=== PATIENT | female | born 1990 | race Caucasian/White ===

== ENCOUNTER 2018-03-28 11:30 | Emergency (ER) | payer OTHER, SELFPAY ==
[2018-03-28 11:31] VITALS: BP 108/65; PULSE 90; RESP 18; TEMP 36.6; O2SAT 97; BMI 48.8
--- NOTE | 2018-03-28 11:46 | RAD_ITS ---
STUDY: X-RAY CHEST REASON FOR EXAM: Female, 28 years old. 4 day history of hemoptysis. Chest pain. TECHNIQUE: PA and lateral views of the chest. COMPARISON: None. FINDINGS: The lungs are clear and expanded. There is no demonstrated pleural abnormality. Normal size heart. Normal mediastinum and chioma. Normal visualized pulmonary arteries. Normal visualized aortic arch and descending thoracic aorta. Normal visualized thoracic spine. Normal visualized ribs, clavicles, and shoulders. There is no demonstrated abnormality of the visualized soft tissue structures of the upper abdomen. RAD/Chest PA and Lateral IMPRESSION: Normal x-ray examination of the chest. Electronically Signed: Rocky Mcclellan MD at 12:22 EDT Tel [phone], Service support ,
--- NOTE | 2018-03-28 11:48 | ED.VISSUMM ---
- ER Visit Summary Date of Service: 03/28/18 Chief Complaint: Cough History of Present Illness: The patient is a 28 F without any past medical or surgical history.. Patient states she had 2-day history of a cough which was initially sputum and blood-tinged sputum and now small amounts of blood. She denies fever. She denies shortness of breath. She has never had a DVT or PE. She has no risk factors. No recent travel or surgery. No recent hospitalization. No leg pain or swelling. No family history of clotting disorder. She is not on any type of control pill. She denies any pleuritic chest pain. Physical Examination: Vital signs are stable and afebrile her pulse ox is 97% room air no signs of hypoxia. Heart rate 90. CO2 she is in no distress. H EENT exam unremarkable. Neck nontender no JVD. No lymphadenopathy. Lungs clear to auscultation bilaterally. Heart regular rate and rhythm no murmur. Rate about 90. He was treated abdomen soft nontender normal bowel sounds no peritoneal metastases. She is moving all 4 extremity's. Neurovascular intact. Calves are nontender without edema nor cords. Neurologically she is awake and alert with no focal motor deficits. Back exam nontender. Skin unremarkable. No petechiae or purpura. No rashes. Test Results: Two-view chest x-ray shows Emergency Department Course and Treatment: Patient's history and exam are consistent with a viral bronchitis. Treatment Plan: Return if coughing up more blood, Develops shortness of breath or pleuritic chest pain. Disposition: Discharge Impression: Viral bronchitis This note was generated with [employer] dictation software. It may contain incorrect words, spelling, and punctuation that were not noted in review of the chart prior to signing ED Disposition - Plan for ED Patient: Chief Complaint: Cough Referrals: NOT,DEFINED [Primary Care Provider] -
--- NOTE | 2018-03-28 11:53 | ED.DEP ---
ED Disposition - Plan for ED Patient: Disposition: Home or Assisted Living Chief Complaint: Cough Instructions: ED Upper Resp Infec No Abx Tx Referrals: Jordan Dalton MD [STAFF PHYSICIAN] - As Needed Additional Instructions: Follow-up with a local primary care physician as needed. Return to the ER if you develop severe shortness of breath, chest pain or your coughing up more blood.
[2018-03-28 12:42] VITALS: BP 116/70; PULSE 78; RESP 17; O2SAT 97
--- NOTE | 2018-03-29 09:54 | CM.ED ---
ED CALLBACK: Follow-up call placed to patient with no answer. Voicemail left with return contact information.
== END 2018-03-28 12:43 | disposition home or self-care (01) ==
LOC: ED 12:14
PROVIDERS: Emergency Provider Emergency Medicine
DX: J20.8 Acute bronchitis due to other specified organisms (principal)
CPT/HCPCS: 71046; 99282

== ENCOUNTER 2018-11-08 10:47 | Day surgery (SDC) | payer OTHER, SELFPAY ==
--- NOTE | 2018-11-06 17:16 | PCM.HP.BLA ---
History and Physical Date of Admission: 11/08/18 Pre-Op History and Physical ? HPI: The patient is a 28 year old female presenting for pre-operative visit. She is scheduled for?Suction D&C, for?missed on?11/08/18. ??Procedure discussed along with risks, benefits and complications. ?Other alternatives discussed for management. Consent form signed??Yes.? PAST?MEDICAL?HISTORY PAST MEDICAL HISTORY Diagnosis Date ? fracture ? ? right wrist ? ? PAST?SURGICAL?HISTORY PAST SURGICAL HISTORY Procedure Laterality Date ? PAST SURGICAL HISTORY OF ? ? ? right arm fracturereduced under anesthesia ? ? CURRENT?MEDICATIONS Current Outpatient Medications Medication Sig Dispense Refill ? promethazine (PHENERGAN) 12.5 mg tablet Take 1 tablet by mouth every 6 hours as needed. 30 tablet 1 ? [id number] ( VITAMIN) tab Take 1 tablet by mouth. ? ? ? No current facility-administered medications for this visit.? ? ALLERGIES:?Salt Irrigation Solution No.3 ? PERSONAL HISTORY:? 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 FAMILY HISTORY:? FAMILY?HISTORY FAMILY HISTORY Problem Relation Age of Onset ? Cancer Mother ?brain and lung cancer ? No Known Problems Father ? ? No Known Problems Brother ? ? Breast Cancer Maternal Grandmother ? ? No Known Problems Paternal Grandmother ? ? REVIEW OF SYMPTOMS: GENERAL: denies fevers or chills ENDOCRINOLOGY: has not been on steroids Cardiology : denies palpitations or chest pain Respiratory: denies SOB or cough Hematology: denies history of prolonged bleeding or easy bruising or VTE Allergy: Denies history of personal or family history of allergy to anesthesia ? ? PHYSICAL EXAMINATION: ? VITALS:?Last menstrual period 09/07/2018. ? GENERAL:??The patient is well nourished, well hydrated in no acute distress. ?, The patient is oriented to time, place, and person. NECK:?Supple. No lynphadenopathy, normal thyroid, no thyromegaly. LUNGS:?Clear to auscultation bilaterally. no wheezes, rhonchi or rales HEART:?Regular rate and rhythm, Normal heart sounds and No murmurs or gallops Formal US done on 11/01/18- SAB w/oc cardiac activity.?? ? IMPRESSION:?7 week SAB ? PLAN:???The risks/benefits/alternatives and personal involved for the planned?suction D&C?were reviewed with the patient. Her questions were answered to her satisfaction and she desires to proceed. ?Consent was signed. ?I reviewed with her postop instructions and expectations. Will get CBC and Type and screen preop ? I have reviewed and updated past medical and surgical history, medications and allergies? This history and physical was completed in my office on 11/06/2018. Jo-Ann Zepeda M.D.
[2018-11-08 12:02] VITALS: BP 115/74; PULSE 76; RESP 18; TEMP 37.1; O2SAT 100; BMI 46.0
--- NOTE | 2018-11-08 12:30 | POC_PTH ---
PATIENT: CARL PARRA LOC: [facility] – [place] U#:[id number] AGE/SX: 28/F ROOM: RE11/08/[address]: Dr. Jo-Ann Zepeda MD : 1990 BED: DIS: 11/08/2018 SPEC #: [id number] RECD: 11/09/18 08:57 STATUS: VANI BHATTI #: [id number] TAMIKA: 11/08/18 12:[address]: Jo-Ann Zepeda DEPT: SURGICAL PATHOLOGY RECD BY: Adan Taylor ENTERED: 11/09/18 08:58 SP TYPE: PROD CONC OTHR DR: Dr. Rolan Art MD Tissues: Product of conception, NOS Procedures: Surgery Specimen Level IV HEADER OPERATION: Suction dilation and curettage PRE-OP DIAGNOSIS: Missed TISSUE SUBMITTED: Products of conception MICROSCOPIC DIAGNOSIS Products of conception: Decidua, gestational endometrium and immature chorionic villi (products of conception). SJ:yemi 11/12/18 MICROSCOPIC DESCRIPTION Slides are reviewed. GROSS DESCRIPTION Received in fixative is one container labeled with the patient's name and designated products of conception. The specimen consists of multiple irregular fragments of light negron soft tissue that in aggregate measure 8 x 6 x 1.5 cm. parts are not grossly recognized. Associate Faculty portions are submitted in one cassette. / AM:yemi 11/09/18 TC:5 CPT: 41687
[2018-11-08 12:34] LABS: Hematocrit 34.2 % (37-47); Mean Corp Hgb Conc 32.2 g/gl (32-36); Mean Corpuscular Hgb 24.8 pg (27.0-32.0); Mean Corpuscular Volume 77.2 fL (81-99); Mean Platelet Vol. 10.4 fl (6.2-12.0); Platelet Count 334 K/mm3 (150-450); RBC Distribution Width SD 44.8 fl (35.1-43.9); Red Blood Count 4.43 M/mm3 (4.2-5.4)
[2018-11-08 12:39] LABS: Scan Indicated on CBC? Y/N NO
[2018-11-08] MEDS: Acetaminophen 500 MG Tablet 1000 MG PO (13:09)
[2018-11-08] MEDS: Doxycycline 100 MG CAPSULE PO (13:09)
[2018-11-08] MEDS: Ketorolac 30 MG/ML Syringe IV (13:10)
[2018-11-08 15:20] VITALS: BP 110/64; BP 115/74; PULSE 90; RESP 16; TEMP 37.2; O2SAT 92
[2018-11-08 15:25] VITALS: BP 115/74; BP 99/62; PULSE 88; RESP 16; O2SAT 95
--- NOTE | 2018-11-08 15:25 | DCINST_ITS ---
Discharge Diet: No Restrictions Discharge Activity: Return to Normal Activity, May Shower, May Take a Tub Bath - in 2 weeks. May resume sexual activity in: 2 weeks Call your doctor if your incision/area has: Sudden Increased Bleeding, Foul Smelling Discharge Call your doctor if you observe: Fever of 101 or Higher, Inability to have a bowel movement, Using more than one pad per hour - for 2 hrs in a row Allergies/Adverse Reactions: Allergies IODIZED SALT Allergy (Uncoded 11/07/18 10:44) Anaphylaxis Medications to take at Discharge Ibuprofen [Motrin] 600 mg PO Q6H PRN #20 tablet 11/08/18 The following prescriptions were given: Ibuprofen [Motrin] 600 mg PO Q6H PRN #20 tablet PRN Reason: Pain Primary Care Physician: Rolan Art [Primary Care Provider] - Test Results: Test results from this visit will be discussed in further detail at your follow- up appointment, if applicable. Please Follow Up With: Shakira Duenas - [phone] When: In our office in 2-4 weeks or as needed
--- NOTE | 2018-11-08 15:25 | PCM.OPRPT ---
Report of Operation Date of Procedure: 11/08/18 Pre-Operative Diagnosis: missed 7 weeks gestation Post-Operative Diagnosis: Same Surgery/Procedure Performed:: Suction dilation and curettage Description of Surgical Findings:: Normal-appearing cervix and vagina traffic representative: None Type of Anesthesia:: MAC/Supplemental/Local Special Medications: None Specimen's removed: Products of conception Drains: none Estimated Blood Loss (mL): 10 Fluids Replaced: 800 Description of Procedure: The patient was taken to the operating room where she was prepped and draped in a dorsolithotomy position. A bimanual examination was done and confirmed the uterus to be 7 weeks size and mid-position. A weighted speculum was placed in the vagina and the anterior lip of the cervix was grasped with a single-tooth tenaculum. The cervix was dilated serially. A 7 mm suction curette was placed to the uterine fundus and the suction was created. Several passes were made to remove clots and products of conception. When minimal tissue was returning a gentle sharp curettage was then done of the uterine cavity. The uterine cry was appreciated and another gentle pass was made with the suction curette. At this point there is no active bleeding from the uterus and minimal blood and no further products of conception were removed. The instruments removed from the cervix and the cervix was observed and no active bleeding was identified. The tenaculum was removed off the cervix and hemostasis of the tenaculum site was assured. Made of the instruments removed from the vagina and the vaginal sweep was completed by me. Sponge and needle counts were correct. The patient was taken to the recovery room in stable condition. Findings: 7 week size uterus, normal cervix and vagina. Specimen: Products of conception Grafts/Implants Used: none - Complications none - Admit VTE Documentation VTE Present on Admission: No VTE Mechan Device Prophylaxis: SCD's VTE Pharm Prophylaxis ordered?: No Reason prophylaxis not ordered:: Procedure Not Indicated
[2018-11-08 15:30] VITALS: BP 104/58; BP 115/74; PULSE 78; RESP 16; O2SAT 98
[2018-11-08 15:35] VITALS: BP 111/70; BP 115/74; PULSE 79; RESP 16; TEMP 37.1; O2SAT 97
[2018-11-08 16:44] VITALS: BP 115/74
== END 2018-11-08 16:53 | disposition home or self-care (01) ==
LOC: SDC 10:49 → AC 10:52
PROVIDERS: Family Provider Family Medicine; PCP Family Medicine; Referring Provider Obstetrics & Gynecology; Visit Provider Obstetrics & Gynecology
PROC: (CPT 59820; principal; 2018-11-08 12:15)
DX: O02.1 Missed abortion (principal); Z3A.01 Less than 8 weeks gestation of pregnancy
CPT/HCPCS: 59820; 85027; 86850; 86900; 88305; J7120; J2405

== ENCOUNTER 2019-03-13 07:44 | Emergency (ER) | payer OTHER, SELFPAY ==
[2019-03-13 07:45] VITALS: BP 114/78; PULSE 102; RESP 14; TEMP 36.6; O2SAT 99; BMI 42.4
[2019-03-13 08:37] LABS: Mucous, Urine 0 SEEN /hpf (<or=2+); Red Blood Cells-Urine 0 SEEN /hpf (0-5)
[2019-03-13 08:38] LABS: Color, Urine Yellow (Yellow); Glucose, Dipstick Normal (Normal); Ketone-Dipstick 150 mg/dl (Negative); Leukocyte Esterase-Dipstick 500 /ul (Negative); Nitrite-Dipstick Negative (Negative); Occult Blood-Urine 25 /ul (Negative); Protein-Dipstick 30 mg/dl (Negative); Specific Gravity, Urine 1.025 (1.002-1.030); Urine Bilirubin Dipstick Negative (Negative); Urine Clarity Cloudy (Clear); Urine Urobilinogen 4 mg/dl (Normal)
[2019-03-13 08:47] LABS: Bacteria 2+ /hpf (None Seen); Squamous Epithelial Cells - UA 25-50 SEEN /hpf (5-10); White Blood Cells 5-10 SEEN /hpf (0-5)
[2019-03-13 08:48] LABS: Absolute Lymphocyte Count 1.77 X10^3/uL (0.83-4.51); Absolute Neutrophil Count 5.8 X10^3/uL (2.0-7.7); Basophil# 0.04 X10^3/uL; Basophil% 0.5 % (0-1); Eosinophil# 0.41 X10^3/uL; Eosinophils% 4.7 % (0-5); Hematocrit 35.4 % (37-47); Hemoglobin 11.4 g/dL (12.0-15.0); Lymphocyte # 1.77 X10^3/ul (4.0); Lymphocyte % 20.5 % (19-41); Mean Corp Hgb Conc 32.2 g/dL (32-36); Mean Corpuscular Hgb 26.3 pg (27.0-32.0); Mean Corpuscular Volume 81.6 fL (81-99); Mean Platelet Vol. 11.5 fl (6.2-12.0); Monocyte% 6.9 % (0-10); NRBC Flagged by Analyzer 0 % (0-5); Neutrophil # 5.81 X10^3/uL (2.7-7.7); Neutrophil % 67.3 % (47-70); Platelet Count 250 K/mm3 (150-450); RBC Distribution Width CV 14.8 % (11.6-14.6); RBC Distribution Width SD 44.8 fl (35.1-43.9); Red Blood Count 4.34 M/mm3 (4.2-5.4); White Blood Count 8.6 K/mm3 (4.4-11.0)
[2019-03-13 09:09] LABS: ALB/GLOB Ratio 0.6 RATIO (0.9-2.4); AST(SGOT) 34 U/L (15-37); Alanine Aminotransfer ALT/SGPT 27 U/L (13-56); Alkaline Phosphatase 50 U/L (45-117); Anion Gap 8 (5-15); BUN 6 mg/dL (7-18); BUN/Creat Ratio 9.6 RATIO (10-20); Calcium,Total 9.1 mg/dL (8.5-10.1); Chloride 107 mmol/L (98-107); Creatinine, Serum 0.62 mg/dL (0.55-1.02); EST Glomerular Filtration Rate 122 mL/min (>60); Est Glom Filt Rate - Afr Amer 147 mL/min (>60); Estimated Creatinine Clearance 102.85 ml/min; Globulin 4.7 g/dL (2.2-4.2); Glucose 78 mg/dL (74-106); Potassium 4.3 mmol/L (3.5-5.1); Protein, Total 7.7 g/dL (6.4-8.2); Sodium Level 136 mmol/L (136-145)
[2019-03-13] MEDS: Metoclopramide 10 MG/2 ML Vial IV (09:25)
[2019-03-13] MEDS: Lactated Ringers 1,000 ML 999 ML IV (09:25)
--- NOTE | 2019-03-13 09:54 | ED.DCSUM_ITS ---
- ER Visit Summary Date of Service: 03/13/19 Chief Complaint: Nausea and vomiting History of Present Illness: The patient is a 29 F who is 12 weeks . She presents with nausea and vomiting for the past week and a half. She has daily symptoms. Nonbloody, nonbilious. No abdominal pain. No cramping, discharge, or bleeding currently. She is taking Unisom, vitamin B6, and Phenergan without much relief. Physical Examination: Afebrile and vital signs unremarkable except heart rate 102. Patient appears nontoxic and in no acute distress. Moist mucous membranes. Heart regular. No respiratory distress. Abdomen soft and nontender. Skin unremarkable. Test Results: Hemoglobin 11.4. CMP unremarkable. Urinalysis shows elevated leukocyte esterase, 5-10 white cells, 2+ bacteria. Culture pending. Emergency Department Course and Treatment: Bedside ultrasound performed by nj shows heart rate of about 140 with grossly normal anatomy. Patient was treated with lactated Ringer's and Reglan. On reevaluation, she was feeling better. Labs were reassuring. Urinalysis shows signs of bacteria. Culture pending. Will treat with Macrobid. Patient will be discharged to follow-up with her ONLINE CONTENT COORDINATOR after completion of her IV fluids. Treatment Plan: As above Disposition: Discharge Impression: 1. Nausea vomiting 2. Bacteriuria This note was generated with [employer] dictation software. It may contain incorrect words, spelling, and punctuation that were not noted in review of the chart prior to signing ED Disposition - Plan for ED Patient: Referrals: Rolan Art MD [Primary Care Provider] -
--- NOTE | 2019-03-13 09:57 | ED.DEP ---
ED Disposition - Plan for ED Patient: Instructions: Understanding Urinary Tract Infections (UTIs) Prescriptions: Nitrofurantoin Macrocrystals [Macrobid] 100 mg PO Q12 #10 cap Prescription Printed Additional Instructions: follow up with your obgyn
[2019-03-13] MEDS: Nitrofurantoin Macrocrystals 100 MG Capsule PO (11:05)
[2019-03-13 11:11] VITALS: BP 116/76; PULSE 86; RESP 16; O2SAT 100
--- NOTE | 2019-03-13 11:11 | ED.RN ---
IV DC'ED, CATHETER INTACT, SMALL GAUZE DRESSING PLACED. DISCHARGE INSTRUCTIONS GIVEN TO AND REVIEWED WITH PATIENT, PATIENT DENIES QUESTIONS OR CONCERNS AND VOICES UNDERSTANDING OF DISCHARGE INSTRUCTIONS. PT AMBULATES OUT OF ROOM WITHOUT DIFFICULTY.
== END 2019-03-13 11:12 | disposition home or self-care (01) ==
LOC: ED 08:22
PROVIDERS: Emergency Provider Emergency Medicine; Family Provider Family Medicine; PCP Family Medicine
DX: O26.891 Other specified pregnancy related conditions, first trimester (principal); R11.2 Nausea with vomiting, unspecified; R82.71 Bacteriuria; Z3A.12 12 weeks gestation of pregnancy
CPT/HCPCS: 80053; 81001; 85025; 87086; 87088; 96361; 96374; 99285; J7120; A4216

== ENCOUNTER 2019-09-13 06:38 | Outpatient (CLI) | payer OTHER, SELFPAY ==
[2019-09-13 06:54] VITALS: BMI 44.4
[2019-09-13 06:59] VITALS: PULSE 111; O2SAT 98
[2019-09-13 07:02] VITALS: BP 118/77; PULSE 120; TEMP 36.8; O2SAT 98
[2019-09-13 07:46] LABS: ROM Internal Control Test YES-OK TO RESULT pt. (Internal QC); ROM Patient Test Negative (Negative)
--- NOTE | 2019-09-13 20:33 | OB.TRI.NOTE ---
- Problem List (1) 38 weeks gestation of Status: Acute (2) Vaginal discharge Status: Acute History of Present Illness Date of Service: 09/13/19 Was patient seen by the physician?: No Reason For Visit: R/O LABOR Final MINH: 09/22/19 Gestational age: 38 Weeks and 5 Days History of Present Illness: Patient presented for possible LOF Allergies IODIZED SALT Allergy (Uncoded 09/13/19 07:10) Swelling Laboratory Studies: Laboratory Tests 09/13/19 Range/Units 06:56 Vag Amniotic Fld Detect Negative (Negative) Physical Exam Vitals: Vital Signs Temp Pulse BP Pulse Ox 98.3 F 120 H 118/77 98 09/13/19 07:02 09/13/19 07:02 09/13/19 07:02 09/13/19 07:02 NST - FHR Rate Baby A Baseline: 135 Variability:: Moderate Accelerations:: 15 x 15 Decelerations:: None NST Reactive:: Yes FHR Category:: Category I Uterine Activity:: Irregular ctx's Impression/Plan NST reactive ROM plus negative Discharged home with follow up in the office
== END 2019-09-13 08:00 | disposition home or self-care (01) ==
LOC: WPOUT 06:52 → WP 06:53
PROVIDERS: PCP Family Medicine; Visit Provider Obstetrics & Gynecology
DX: Z34.93 Encounter for supervision of normal pregnancy, unspecified, third trimester (principal)
CPT/HCPCS: 59025; 59050; 84112; 99218; G0378

== ENCOUNTER 2019-09-20 06:54 | Inpatient (IN) | payer OTHER, SELFPAY ==
[2019-09-20] VITALS (55 sets, daily range): BP systolic 109–132; BP diastolic 56–98; PULSE 83–126; TEMP 36.4–37.6; O2SAT 82–100; BMI 44.5
[2019-09-20] MEDS: Lactated Ringers 1,000 ML 50 ML IV (08:58)
[2019-09-20] MEDS: Oxytocin 30 units/NS 500 ml 30 UNITS/500 ML IV.SOLN IV (09:08)
[2019-09-20 09:12] LABS: Absolute Lymphocyte Count 1.82 X10^3/uL (0.83-4.51); Basophil# 0.02 X10^3/uL; Basophil% 0.2 % (0-1); Eosinophil# 0.25 X10^3/uL; Eosinophils% 2.5 % (0-5); Hematocrit 33.7 % (37-47); Hemoglobin 10.8 g/dL (12.0-15.0); Lymphocyte # 1.82 X10^3/ul (4.0); Mean Corpuscular Hgb 25.7 pg (27.0-32.0); Mean Platelet Vol. 10.9 fl (6.2-12.0); Monocyte# 0.97 X10^3/uL; Monocyte% 9.6 % (0-10); NRBC Flagged by Analyzer 0 % (0-5); Neutrophil # 6.99 X10^3/uL (2.7-7.7); Platelet Count 262 K/mm3 (150-450); RBC Distribution Width CV 14.1 % (11.6-14.6); RBC Distribution Width SD 40.5 fl (35.1-43.9); Red Blood Count 4.21 M/mm3 (4.2-5.4); White Blood Count 10.1 K/mm3 (4.4-11.0)
--- NOTE | 2019-09-20 09:49 | HP.PCM_ITS ---
History Date of Admission: 11/08/18 Final MINH: 09/22/19 Final MINH Source: US <20 weeks Gestational age: 39 Weeks and 5 Days History of this : This is a 29 year-old, 2 para 0-0-1-0 presents at 39-5/7 weeks gestation for induction of labor due to maternal obesity. has been uncomplicated to date. She denies any vaginal bleeding or leaking of fluid. She has had good movements. Had some nausea and vomiting during the . Hour glucose tolerance test but passed the 3-hour. Also had some mild antepartum anemia. Allergies IODIZED SALT Allergy (Uncoded 09/13/19 07:10) Swelling Home Medications: Home Medications Vits [Prenatabs FA] 1 tab PO DAILY 03/13/19 Docusate Sodium [Colace] 100 mg PO DAILY 09/13/19 Famotidine [Pepcid] 40 mg PO PRN PRN 09/13/19 Ferrous Sulfate [Iron] 325 mg PO DAILY 09/13/19 Magnesium 500 mg PO DAILY PRN 09/13/19 Ondansetron [Zofran Odt] 4 mg PO Q8H PRN PRN 09/13/19 Smoking Status: Never smoker Alcohol: None Number of Fetus(es): 1 History Past Pregnancies: Past Pregnancies Delivery Date Name GA/ Weeks Outcome Route Wt Infant Sex Labor Length Anesthesia Delivery Location Provider FOB Expected Delivery Method: Spontaneous Vaginal Review of Systems Constitutional: Denies: Chills, Fever Eyes: Denies: Blurred vision Cardiovascular: Denies: Chest Pain Respiratory: Denies: Cough, Shortness of Breath Gastrointestinal: Denies: Diarrhea, Nausea, Vomiting Genitourinary: Denies: Dysuria Neurological: Denies: Change in Speech, Slurred speech, Headaches Physical Exam Vitals: Vital Signs Temp Pulse BP Pulse Ox 97.7 F L 93 125/85 H 98 09/20/19 09:39 09/20/19 09:39 09/20/19 09:39 09/20/19 09:39 General: Alert, Cooperative, No apparent distress Cardiovascular: Regular rate Lungs: Normal air movement Abdomen: Soft, Non Tender, Non-Distended, Gravid, Appropriate for Gestational Age Neurological: Neuro grossly intact REJECTED ITEMS CLERK: Normal external genitalia Estimated gestational size: Appropriate for gestational size Presentation: Cephalic Assessment/Plan All Active Problems 38 weeks gestation of (Acute) Vaginal discharge (Acute) This is a 29 year-old, 2 para 0 at 39-5/7 weeks gestation for induction of labor due to maternal obesity. Risk benefits and alternatives to induction been discussed with patient, questions were answered to her satisfaction she desires to proceed. We will proceed with Pitocin and artificial rupture membrane induction. Epidural if desires. Estimated weight is less than 4500 g and pelvis is clinically adequate to expect vaginal delivery.
[2019-09-20] MEDS: Lactated Ringers 500 ML 999 ML IV (14:45)
[2019-09-20] MEDS: fentaNYL-bupivacaine (epidural) 100 ML BAG EPIDURAL ×2 (15:39→19:59)
[2019-09-20] MEDS: Lactated Ringers 1,000 ML 200 ML IV ×2 (18:42→23:46)
[2019-09-21] VITALS (31 sets, daily range): BP systolic 97–133; BP diastolic 55–73; PULSE 101–140; RESP 12–23; TEMP 36.2–37.4; O2SAT 95–100
[2019-09-21] MEDS: fentaNYL-bupivacaine (epidural) 100 ML BAG EPIDURAL (01:18)
[2019-09-21] MEDS: Sodium Citrate/Citric Acid 30 ML UDC PO (02:35)
[2019-09-21] MEDS: Cefazolin 2 GM in 0.9% Normal Saline 100 ML IV (02:50)
[2019-09-21] MEDS: Oxytocin 30 units/NS 500 ml 30 UNITS/500 ML IV.SOLN 167 UNITS IV (03:59)
--- NOTE | 2019-09-21 06:40 | NURSING ---
pt has indwelling urinary catheter
[2019-09-21] MEDS: Lactated Ringers 1,000 ML 100 ML IV (07:00)
[2019-09-21] MEDS: 0.9% Saline Lock 10 ML Syringe IV ×2 (09:26→12:01)
[2019-09-21] MEDS: Ketorolac 30 MG/ML Syringe IV (09:26)
--- NOTE | 2019-09-21 13:24 | PN.OBGYN_ITS ---
Subjective: Pain well controlled. Average lochia. No nausea or vomiting. Denies headache, visual changes, lightheadedness, shortness of breath. - Physical Exam Vitals/I&O's: Vital Signs Temp Pulse Resp BP Pulse Ox 97.7 F L 134 H 18 102/56 L 100 09/21/19 08:02 09/21/19 11:18 09/21/19 08:02 09/21/19 11:18 09/21/19 08:02 Oxygen Delivery Method Room Air Weight: 107 kg Body Mass Index (BMI) 44.5 Intake and Output for Last 24 Hours 09/19/19 09/20/19 09/21/19 23:59 23:59 23:59 Intake Total 3230.05 / 3230.05 1295.50 / 1295.50 Output Total 50 / 50 600 / 600 Balance 3180.05 / 3180.05 695.50 / 695.50 General: Alert, Cooperative, No apparent distress Abdomen: Soft, Distended - Moderately, softly, Obese Extremities: Edema - 2+ Skin: Incision - Bandage is clean dry and intact Current Medications Acetaminophen (Tylenol) 1,000 mg PO Q8H PRN PRN PRN Reason: Pain Score 1-3/10 Bisacodyl (Dulcolax) 10 mg RECTAL UD PRN PRN Reason: If no BM Enoxaparin Sodium (Lovenox) 40 mg SC Q12H [facility] Hydrocortisone (Hytone) 1 applic TOPICAL TID PRN PRN; Protocol PRN Reason: Discomfort Lactated Ringer's () 1,000 mls @ 100 mls/hr IV .Q10H [facility] Last Admin: 09/21/19 07:00 Dose: 100 mls/hr Documented by: Naloxone HCl 4 mg/ Dextrose 504 mls @ 0 mls/hr IV .Q0M PRN; Protocol PRN Reason: Respiratory depression Ketorolac Tromethamine (Toradol (Bkc)) 30 mg IV Q6H [facility] Stop: 09/23/19 02:46 Last Admin: 09/21/19 09:26 Dose: 30 mg Documented by: Methylergonovine Maleate (Methergine) 0.2 mg IM X1 PRN PRN Reason: Uterine Atony Naloxone HCl (Narcan) 0.02 mg IV Q1M PRN PRN Reason: RR <10 and pt unresponsive Naproxen (Naprosyn) 250 - 500 mg PO Q8H PRN PRN PRN Reason: Pain Score 1-3/10 Ondansetron HCl (Zofran) 4 mg IV Q4H PRN PRN PRN Reason: Nausea Oxycodone HCl (Oxyir) 5 - 10 mg PO Q4H PRN PRN PRN Reason: Pain Score 4-10/10 Prochlorperazine Edisylate (Compazine Iv) 10 mg IV Q6H PRN PRN PRN Reason: NAUSEA Senna/Docusate Sodium (Senokot-S, Coby-Colace) 0 tablet PO DAILY PRN PRN Reason: Constipation Simethicone (Mylicon) 80 mg PO PCHS PRN PRN Reason: Indigestion/stomach pain Sodium Chloride () 5 - 15 ml IV UD PRN PRN Reason: SALINE FLUSH Last Admin: 09/21/19 12:01 Dose: 10 ml Documented by: Medical Necessity - Tobacco Use Smoking Status: Never smoker Assessment/Plan All Active Problems 38 weeks gestation of (Acute) Vaginal discharge (Acute) Postoperative day #0 status post primary section for arrest of descent. Patient is doing well. Working on breast-feeding today. Mild tachycardia but denies chest pain or shortness of breath. Will check CBC. Vitals are otherwise within normal limits.
[2019-09-21 14:14] LABS: Hemoglobin 8.9 g/dL (12.0-15.0); Mean Corp Hgb Conc 31.8 g/dL (32-36); Mean Corpuscular Hgb 26.2 pg (27.0-32.0); Mean Corpuscular Volume 82.4 fL (81-99); Platelet Count 206 K/mm3 (150-450); RBC Distribution Width CV 14.4 % (11.6-14.6); RBC Distribution Width SD 42.3 fl (35.1-43.9); White Blood Count 14.5 K/mm3 (4.4-11.0)
[2019-09-21] MEDS: Enoxaparin 40 MG/0.4 ML Syringe SC (15:19)
[2019-09-21] MEDS: Naproxen 250 MG Tablet PO (15:56)
[2019-09-21] MEDS: Acetaminophen 500 MG Tablet 1000 MG PO (19:10)
[2019-09-22] VITALS (9 sets, daily range): BP systolic 99–120; BP diastolic 58–72; PULSE 100–120; RESP 14–18; TEMP 36.3–36.5; O2SAT 96–99
[2019-09-22] MEDS: Naproxen 250 MG Tablet PO ×3 (02:24→20:12)
[2019-09-22] MEDS: Enoxaparin 40 MG/0.4 ML Syringe SC ×2 (04:59→16:02)
[2019-09-22] MEDS: Acetaminophen 500 MG Tablet 1000 MG PO ×2 (05:07→16:01)
[2019-09-22 06:24] LABS: Hematocrit 24.5 % (37-47); Hemoglobin 7.8 g/dL (12.0-15.0); Mean Corp Hgb Conc 31.8 g/dL (32-36); Mean Corpuscular Volume 81.7 fL (81-99); Mean Platelet Vol. 10.6 fl (6.2-12.0); Platelet Count 198 K/mm3 (150-450); RBC Distribution Width CV 14.6 % (11.6-14.6); RBC Distribution Width SD 42.6 fl (35.1-43.9); White Blood Count 14.6 K/mm3 (4.4-11.0)
--- NOTE | 2019-09-22 07:57 | PCM.PN.OB ---
Subjective: Pain well controlled. Average lochia. Denies chest pain, shortness of breath, lightheadedness. - Physical Exam Vitals/I&O's: Vital Signs Temp Pulse Resp BP Pulse Ox 97.5 F L 105 H 18 99/60 96 09/22/19 01:00 09/22/19 02:25 09/22/19 02:25 09/22/19 01:00 09/22/19 02:25 Oxygen Delivery Method Room Air Weight: 107 kg Body Mass Index (BMI) 44.5 Intake and Output for Last 24 Hours 09/20/19 09/21/19 09/22/19 23:59 23:59 23:59 Intake Total 3230.05 / 3230.05 1797.17 / 1797.17 Output Total 50 / 50 600 / 600 Balance 3180.05 / 3180.05 1197.17 / 1197.17 General: Alert, Cooperative, No apparent distress Abdomen: Soft, Non-Distended, Obese, Tender - Appropriately Extremities: Edema - 2+ Skin: Incision - Her bandage is clean dry and intact Laboratory Results 09/21/19 13:48: WBC 14.5 H, RBC 3.40 L, Hgb 8.9 L, Hct 28.0 L, MCV 82.4, MCH 26.2 L, MCHC 31.8 L, RDW Std Deviation 42.3, RDW Coeff of Radha 14.4, Plt Count 206, MPV 11.0 09/22/19 06:07: WBC 14.6 H, RBC 3.00 L, Hgb 7.8 L, Hct 24.5 L, MCV 81.7, MCH 26.0 L, MCHC 31.8 L, RDW Std Deviation 42.6, RDW Coeff of Radha 14.6, Plt Count 198, MPV 10.6 Current Medications Acetaminophen (Tylenol) 1,000 mg PO Q8H PRN PRN PRN Reason: Pain Score 1-3/10 Last Admin: 09/22/19 05:07 Dose: 1,000 mg Documented by: Bisacodyl (Dulcolax) 10 mg RECTAL UD PRN PRN Reason: If no BM Enoxaparin Sodium (Lovenox) 40 mg SC Q12H [facility] Last Admin: 09/22/19 04:59 Dose: 40 mg Documented by: Hydrocortisone (Hytone) 1 applic TOPICAL TID PRN PRN; Protocol PRN Reason: Discomfort Naloxone HCl 4 mg/ Dextrose 504 mls @ 0 mls/hr IV .Q0M PRN; Protocol PRN Reason: Respiratory depression Methylergonovine Maleate (Methergine) 0.2 mg IM X1 PRN PRN Reason: Uterine Atony Naloxone HCl (Narcan) 0.02 mg IV Q1M PRN PRN Reason: RR <10 and pt unresponsive Naproxen (Naprosyn) 250 - 500 mg PO Q8H PRN PRN PRN Reason: Pain Score 1-3/10 Last Admin: 09/22/19 02:24 Dose: 500 mg Documented by: Ondansetron HCl (Zofran) 4 mg IV Q4H PRN PRN PRN Reason: Nausea Oxycodone HCl (Oxyir) 5 - 10 mg PO Q4H PRN PRN PRN Reason: Pain Score 4-10/10 Prochlorperazine Edisylate (Compazine Iv) 10 mg IV Q6H PRN PRN PRN Reason: NAUSEA Senna/Docusate Sodium (Senokot-S, Coby-Colace) 0 tablet PO DAILY PRN PRN Reason: Constipation Simethicone (Mylicon) 80 mg PO PCHS PRN PRN Reason: Indigestion/stomach pain Medical Necessity - Tobacco Use Smoking Status: Never smoker Assessment/Plan All Active Problems 38 weeks gestation of (Acute) Vaginal discharge (Acute) Postoperative day #1 status post primary section. Patient is doing well. Acute blood loss anemia superimposed on chronic antepartum anemia. Patient is tolerating this well. Start iron. is breast-feeding and doing well. Likely discharge home tomorrow.
[2019-09-22] MEDS: Senna/Docusate Sodium 1 Tablet PO (10:05)
--- NOTE | 2019-09-22 20:25 | PCM.OPRPT ---
Delivery Classification: BLANCA Gestational age: 39 6/7 collar starcher: Mary Grace Weston Type of Anesthesia:: Epidural Special Medications: none Implants Used: none Date of Procedure: 09/21/19 Pre-Operative Diagnosis: arrest of descent Post-Operative Diagnosis: same Description of Procedure: The patient progressed to an anterior lip or room for approximately 3 hours, then pushed for 3 hours without significant descent. Being that she was essentially complete for approximately 6 hours, and the station was still 0, I discussed with Sandra and her that attempted operative delivery was not clinically indicated. Questions were answered to their satisfaction they desired to proceed with section. She understood the option of continuing the second stage but was exhausted. The patient was taken to the operating room. She was prepped and draped in the dorsal supine position with a leftward tilt. A Pfannenstiel skin incision was made approximately 2 cm above the symphysis pubis and carried through to underlying layer fascia with the scalpel. The fascia was incised incised in the midline and extended laterally with the Huffman scissors. The fascia was dissected off the rectus muscles with blunt and sharp dissection. The rectus muscles were in the midline and the peritoneum was entered bluntly. The peritoneal incision was stretched and the bladder blade was placed. The uterine incision was made in a low transverse fashion with the scalpel and extended superiorly and inferiorly with blunt dissection. The amniotic membranes were ruptured bluntly and clear amniotic fluid returned. The infant's head was brought to the incision in the flexed position and delivered without difficulty. The remainder of the infant was delivered with gentle traction and fundal pressure in the standard fashion. The mouth and nares were bulb suctioned. The cord was clamped and cut as the was stimulated. Cord clamping was delayed. The was handed off to the waiting nursing staff. The placenta was delivered with fundal massage and gentle traction in the standard fashion. The uterus was exteriorized and cleared of all clots and debris. . The uterine incision was closed with #1 Vicryl in a running locked fashion. A second layer of the same suture was used in an imbricating fashion. The incision was examined and was found to be hemostatic. The uterus was placed back into the peritoneal cavity and hemostasis was again confirmed. First up was placed over the uterine incision. The rectus muscles were examined and any bleeding was Bovie cauterized. The parietal peritoneum and rectus muscles were closed en bloc with an 0 Vicryl running suture. Dai was placed over the rectus muscles. The surgical teams outer gloves were then changed. The rectus fascia was examined and any bleeding was Bovie cauterized and the rectus fascia was closed with 1 Vicryl suture in a running standard fashion. The subcutaneous tissue was examining and any bleeding was Bovie cauterized. The subcutaneous tissue was reapproximated with 3-0 Vicryl suture 2 layers. The skin was closed in a subcuticular fashion by the APPLICATIONS DEVELOPMENT ANALYST with me present in the labor and delivery suite. I performed the remainder of the procedure with assistance. All sponge, lap, and needle counts were correct. The patient was taken to her room for recovery in a stable condition. Amniotic Membrane Rupture Type: Artificial Amniotic Fluid Description: Clear Placenta Disposition: [facility] Drain: Major to straight drain Fluids Replaced: 1000 Cord Entanglement: None Cord Vessel Description: 3 Vessels Esitmated Blood Loss (ml): 800 Gender: Female - 7 lb 5 oz, [place] Delayed cord clamping: Yes Antibiotic Given: Ancef 2 grams IV x1 - Admit VTE Documentation VTE Present on Admission: No VTE Mechan Device Prophylaxis: SCD's VTE Pharm Prophylaxis ordered?: Yes
--- NOTE | 2019-09-22 23:31 | NURSING ---
This RN noticed there was no incentive spirometer in pt. room. Pt. denies receiving one. Respiratory therapist called and IS obtained. Will instruct on pt. use when pt. is awake again. Pt. has had clear lung sounds on assessment and SPO2 appropriate.
[2019-09-23 01:15] VITALS: BP 105/66; PULSE 112
[2019-09-23 01:28] VITALS: BP 105/66; PULSE 112; RESP 18; TEMP 36.7
[2019-09-23] MEDS: Enoxaparin 40 MG/0.4 ML Syringe SC (03:53)
[2019-09-23 07:15] VITALS: BP 119/77; PULSE 118
--- NOTE | 2019-09-23 07:29 | PCM.PN.OB ---
Subjective: pain well controlled, average lochia, +flatus, +BM - Physical Exam Vitals/I&O's: Vital Signs Temp Pulse Resp BP Pulse Ox 98.1 F 118 H 18 119/77 98 09/23/19 01:28 09/23/19 07:15 09/23/19 01:28 09/23/19 07:15 09/22/19 20:16 Oxygen Delivery Method Room Air Weight: 107 kg Body Mass Index (BMI) 44.5 Intake and Output for Last 24 Hours 09/21/19 09/22/19 09/23/19 23:59 23:59 23:59 Intake Total 1797.17 / 1797.17 Output Total 600 / 600 Balance 1197.17 / 1197.17 General: Alert, Cooperative, No apparent distress Abdomen: Soft, Non-Distended, Obese, Tender - appropriately Extremities: Edema - 2+ Skin: Incision - bandage is clean, dry and intact Current Medications Acetaminophen (Tylenol) 1,000 mg PO Q8H PRN PRN PRN Reason: Pain Score 1-310 Last Admin: 09/22/19 16:01 Dose: 1,000 mg Documented by: Bisacodyl (Dulcolax) 10 mg RECTAL UD PRN PRN Reason: If no BM Enoxaparin Sodium (Lovenox) 40 mg SC Q12H KYLEIGH Last Admin: 09/23/19 03:53 Dose: 40 mg Documented by: Hydrocortisone (Hytone) 1 applic TOPICAL TID PRN PRN; Protocol PRN Reason: Discomfort Naloxone HCl 4 mg/ Dextrose 504 mls @ 0 mls/hr IV .Q0M PRN; Protocol PRN Reason: Respiratory depression Methylergonovine Maleate (Methergine) 0.2 mg IM X1 PRN PRN Reason: Uterine Atony Naloxone HCl (Narcan) 0.02 mg IV Q1M PRN PRN Reason: RR <10 and pt unresponsive Naproxen (Naprosyn) 250 - 500 mg PO Q8H PRN PRN PRN Reason: Pain Score 1-3/10 Last Admin: 09/22/19 20:12 Dose: 500 mg Documented by: Ondansetron HCl (Zofran) 4 mg IV Q4H PRN PRN PRN Reason: Nausea Oxycodone HCl (Oxyir) 5 - 10 mg PO Q4H PRN PRN PRN Reason: Pain Score 4-10/10 Prochlorperazine Edisylate (Compazine Iv) 10 mg IV Q6H PRN PRN PRN Reason: NAUSEA Senna/Docusate Sodium (Senokot-S, Coby-Colace) 0 tablet PO DAILY PRN PRN Reason: Constipation Last Admin: 09/22/19 10:05 Dose: 1 tablet Documented by: Simethicone (Mylicon) 80 mg PO PCHS PRN PRN Reason: Indigestion/stomach pain Medical Necessity - Tobacco Use Smoking Status: Never smoker Assessment/Plan All Active Problems 38 weeks gestation of (Acute) Vaginal discharge (Acute) POD#2 s/p primary c/s ready for d/c infant and doing well
[2019-09-23 07:31] VITALS: BP 119/77; PULSE 118; RESP 20; TEMP 36.5
--- NOTE | 2019-09-23 07:34 | DCINST_ITS ---
Discharge Diet: No Restrictions Discharge Activity: Return to Normal Activity, May Not Drive - for 2 weeks, May not drive while taking narcotic pain medications., May Shower, May Take a Tub Bath - in 7 days. May resume sexual activity in: 4-6 weeks Lifting Restrictions: 20 pounds Additional Activity Instructions:: Nothing in the vagina for 4-6 weeks. You may return to work/school in 6 weeks. Call your doctor if your incision/area has: Continuous Slow Oozing, Sudden Increased Bleeding, Increased Pain/ Swelling, Increased Redness, Foul Smelling Discharge Call your doctor if you observe: Fever of 101 or Higher, Using more than one pad per hour - for 2 hours Suture Line Care: Avoid Pulling/Pushing, Avoid Pinching/Bending Cleanse incision/area with: Keep Dressing Clean & Dry Additional Instructions: If you experience any of the following, contact your healthcare provider. * Bleeding that soaks a pad every hour for 2 hours * Fever 100.4 or higher * Unrelieved incision or abdominal pain * Swelling, redness, discharge or bleeding from your incision or episiotomy site * Your incision begins to separate * Problems urinating (including inability to urinate or burning while urinating). * Visual changes * Severe headache * Flu-like symptoms * Pain or redness in one of both of your breasts * Pain, warmth, tenderness or swelling in your legs, especially the calf area * Frequent nausea and vomiting * Symptoms of depression or anxiety If you experience any of the following, call 911 or go to the nearest Emergency Room. * Chest pain * Problems breathing * Seizure activity * Partial or complete paralysis of a body part, slurred speech, weakness or drooping of the face, or a sudden inability to walk or hold your balance Allergies/Adverse Reactions: Allergies IODIZED SALT Allergy (Uncoded 09/13/19 07:10) Swelling Medications to take at Discharge Vits [Prenatabs FA ] 1 tab PO DAILY 03/13/19 Docusate Sodium [Colace] 100 mg PO DAILY 09/13/19 Famotidine [Pepcid] 40 mg PO PRN PRN 09/13/19 Ferrous Sulfate [Iron] 325 mg PO DAILY 09/13/19 Magnesium 500 mg PO DAILY PRN 09/13/19 Ibuprofen [Motrin] 800 mg PO TID PRN PRN #60 tab 09/23/19 Oxycodone [Oxyir] 5 mg PO Q6H PRN PRN 7 Days #10 tab 09/23/19 The following prescriptions were given: Ibuprofen [Motrin] 800 mg PO TID PRN PRN #60 tab PRN Reason: Pain Transmission Status: Pending to [id number] Oxycodone [Oxyir] 5 mg PO Q6H PRN PRN 7 Days #10 tab PRN Reason: severe pain Transmission Status: Received by [id number] Follow-Up: Call to make an appointment with your doctor for an incision check in 1-2 weeks. You will also need a 6 week post- follow up appointment. Test results from this visit will be discussed in further detail at your follow- up appointment, if applicable. Please Follow Up With: Jo-Ann Zepeda MD - Call to make an appointment for an incision check in 1-2 [phone] When: You will need a post check in 6 weeks. Primary Care Physician: Rolan Art MD [Primary Care Provider] -
--- NOTE | 2019-09-23 07:34 | PCM.DC.SUM ---
Discharge Date and Diagnosis Date of Admission: 11/08/18 Date of Discharge: 09/23/19 Hospital Course and Treatment Consultations 09/20/19 07:07 Consult: Anesthesia Routine Comment: Reason For Exam: Labor Summary of Care Provided: The patient is a 29 year old 1 para 0 was admitted for induction of labor due to BMI 44 and being 39+ gestational weeks. She underwent Pitocin and artificial rupture membranes induction of labor. She progressed to complete and pushed without significant descent. She therefore underwent a primary low transverse section via Pfannenstiel skin incision. This was performed without difficulty. Postoperatively the patient's hemoglobin trended down. She had acute blood loss anemia superimposed on chronic antepartum anemia. By postoperative day #2 she was ambulating, urinating tolerating regular diet and oral pain medication without difficulty. She was discharged home with routine instructions and prescriptions. She has a postop visit scheduled on 09/27/2019. [] - Physical Exam Vitals/I&O's: Vital Signs Temp Pulse Resp BP Pulse Ox 98.1 F 118 H 18 119/77 98 09/23/19 01:28 09/23/19 07:15 09/23/19 01:28 09/23/19 07:15 09/22/19 20:16 Oxygen Delivery Method Room Air Weight: 107 kg Body Mass Index (BMI) 44.5 Intake and Output for Last 24 Hours 09/21/19 09/22/19 09/23/19 23:59 23:59 23:59 Intake Total 1797.17 / 1797.17 Output Total 600 / 600 Balance 1197.17 / 1197.17 Current Medications Acetaminophen (Tylenol) 1,000 mg PO Q8H PRN PRN PRN Reason: Pain Score 1-3/10 Last Admin: 09/22/19 16:01 Dose: 1,000 mg Documented by: Bisacodyl (Dulcolax) 10 mg RECTAL UD PRN PRN Reason: If no BM Enoxaparin Sodium (Lovenox) 40 mg SC Q12H [facility] Last Admin: 09/23/19 03:53 Dose: 40 mg Documented by: Hydrocortisone (Hytone) 1 applic TOPICAL TID PRN PRN; Protocol PRN Reason: Discomfort Naloxone HCl 4 mg/ Dextrose 504 mls @ 0 mls/hr IV .Q0M PRN; Protocol PRN Reason: Respiratory depression Methylergonovine Maleate (Methergine) 0.2 mg IM X1 PRN PRN Reason: Uterine Atony Naloxone HCl (Narcan) 0.02 mg IV Q1M PRN PRN Reason: RR <10 and pt unresponsive Naproxen (Naprosyn) 250 - 500 mg PO Q8H PRN PRN PRN Reason: Pain Score 1-3/10 Last Admin: 09/22/19 20:12 Dose: 500 mg Documented by: Ondansetron HCl (Zofran) 4 mg IV Q4H PRN PRN PRN Reason: Nausea Oxycodone HCl (Oxyir) 5 - 10 mg PO Q4H PRN PRN PRN Reason: Pain Score 4-10/10 Prochlorperazine Edisylate (Compazine Iv) 10 mg IV Q6H PRN PRN PRN Reason: NAUSEA Senna/Docusate Sodium (Senokot-S, Coby-Colace) 0 tablet PO DAILY PRN PRN Reason: Constipation Last Admin: 09/22/19 10:05 Dose: 1 tablet Documented by: Simethicone (Mylicon) 80 mg PO PCHS PRN PRN Reason: Indigestion/stomach pain Discharge Diet: No Restrictions Discharge Activity: Return to Normal Activity, May Not Drive - for 2 weeks, May not drive while taking narcotic pain medications., May Shower, May Take a Tub Bath - in 7 days. May resume sexual activity in: 4-6 weeks Additional Activity Instructions:: Nothing in the vagina for 4-6 weeks. You may return to work/school in 6 weeks. Call your doctor if your incision/area has: Continuous Slow Oozing, Sudden Increased Bleeding, Increased Pain/ Swelling, Increased Redness, Foul Smelling Discharge Call your doctor if you observe: Fever of 101 or Higher, Using more than one pad per hour - for 2 hours Suture Line Care: Avoid Pulling/Pushing, Avoid Pinching/Bending Cleanse incision/area with: Keep Dressing Clean & Dry Home Medications: Medications to take at Discharge Vits [Prenatabs FA ] 1 tab PO DAILY 03/13/19 Docusate Sodium [Colace] 100 mg PO DAILY 09/13/19 Famotidine [Pepcid] 40 mg PO PRN PRN 09/13/19 Ferrous Sulfate [Iron] 325 mg PO DAILY 09/13/19 Magnesium 500 mg PO DAILY PRN 09/13/19 Ibuprofen [Motrin] 800 mg PO TID PRN PRN #60 tab 09/23/19 Oxycodone [Oxyir] 5 mg PO Q6H PRN PRN 7 Days #10 tab 09/23/19 Following Prescrptions Were Given to Patient: Ibuprofen [Motrin] 800 mg PO TID PRN PRN #60 tab PRN Reason: Pain Transmission Status: [id number] Oxycodone [Oxyir] 5 mg PO Q6H PRN PRN 7 Days #10 tab PRN Reason: severe pain Transmission Status: Received by [id number] Primary Care Physician: Rolan Art MD [Primary Care Provider] - Please Follow Up With: Jo-Ann Zepeda MD - Call to make an appointment for an incision check in 1-2 [phone] When: You will need a post check in 6 weeks. Medical Necessity - Tobacco Use Smoking Status: Never smoker Meaningful Use Info Meaningful Use Diagnoses (Choose all that apply): None applicable
[2019-09-23] MEDS: Senna/Docusate Sodium 1 Tablet PO (08:21)
== END 2019-09-23 09:15 | disposition home or self-care (01) | DRG 787 ==
PROVIDERS: Admitting Provider Obstetrics & Gynecology; PCP Family Medicine; Referring Provider Obstetrics & Gynecology; Visit Provider Obstetrics & Gynecology
DX: O62.1 Secondary uterine inertia (principal); D62 Acute posthemorrhagic anemia; Z3A.39 39 weeks gestation of pregnancy; Z37.0 Single live birth; O99.214 Obesity complicating childbirth; E66.9 Obesity, unspecified; O99.02 Anemia complicating childbirth; D64.9 Anemia, unspecified; O90.81 Anemia of the puerperium
CPT/HCPCS: 36415; 59025; 59050; 85025; 85027; 86850; 86900; 86901; 99218; J7120; A4216; G0378; J2405

== ENCOUNTER 2021-05-25 05:05 | Inpatient (IN) | payer OTHER, SELFPAY ==
[2019-09-20 07:20] VITALS: BMI 44.5
--- NOTE | 2021-05-20 10:12 | HP.PCM_ITS ---
History and Physical Date of Admission: 05/25/21 HPI: The patient is a 31 year old female presenting for pre-operative visit. She is scheduled for , for previous c/s on 05/25/21. Procedure discussed along with risks, benefits and complications. Other alternatives discussed for management. Consent form signed? Yes. ? ? PAST MEDICAL HISTORY PAST MEDICAL HISTORY Diagnosis Date ? Abnormal Pap smear of cervix ? ? +HPV ? Antepartum anemia complicating in third trimester 07/03/2019 ? fracture ? ? right wrist ? Restless leg ? ? ? PAST SURGICAL HISTORY PAST SURGICAL HISTORY Procedure Laterality Date ? DELIVERY ONLY ? 09/22/2019 ? C/S low transverse ? D&C (MISSED AB 1ST TRIMESTER) ? 11/08/2018 ? PAST SURGICAL HISTORY OF ? ? ? right arm fracturereduced under anesthesia ? ? ? CURRENT MEDICATIONS Current Outpatient Medications Medication Sig Dispense Refill ? promethazine (PHENERGAN) 25 mg tablet Take 0.5-1 tablets by mouth every 6 hours as needed (headache or nausea). 10 tablet 0 ? Breast Pump Use as directed 1 Each 0 ? MAGNESIUM CITRATE ORAL Take by mouth. ? ? ? prochlorperazine (COMPAZINE) 10 mg tablet Take 1 tablet by mouth every 6 hours as needed (nausea). (Patient not taking: Reported on 05/10/2021 ) 30 tablet 1 ? ondansetron (ZOFRAN) 4 mg tablet Take 1 tablet by mouth every 8 hours as needed for nausea/vomiting. 30 tablet 1 ? ondansetron (ZOFRAN) 4 mg tablet Take 1 tablet by mouth every 8 hours. 90 tablet 2 ? Fe gluconate/vit C/folic acid (IRON-C ORAL) Take 27 mg by mouth once daily. (Patient not taking: Reported on 04/19/2021 ) ? ? ? famotidine (PEPCID) 20 mg tablet Take 1 tablet by mouth twice daily as needed. 180 tablet 2 ? Zlazhmhs-Wj-Pxh-Fe-FA ( VITAMIN) tab Take 1 tablet by mouth. ? ? ? No current facility-administered medications for this visit. ? ? ALLERGIES: Salt Irrigation Solution No.3 ? PERSONAL HISTORY: SOCIAL HISTORY Social History ? Tobacco Use ? Smoking status: Never Smoker ? Smokeless tobacco: Never Used Vaping Use ? Vaping Use: Never used Substance Use Topics ? Alcohol use: Not Currently ? Drug use: Never ? FAMILY HISTORY: FAMILY HISTORY FAMILY HISTORY Problem Relation Age of Onset ? Cancer Mother ? ? brain and lung cancer ? No Known Problems Father ? ? No Known Problems Brother ? ? Breast Cancer Maternal Grandmother ? ? No Known Problems Paternal Grandmother ? ? ? REVIEW OF SYMPTOMS: GENERAL: denies fevers or chills ENDOCRINOLOGY: has not been on steroids Cardiology : denies palpitations or chest pain Respiratory: denies SOB or cough Hematology: denies history of prolonged bleeding or easy bruising or VTE Allergy: Denies history of personal or family history of allergy to anesthesia ? PHYSICAL EXAMINATION: ? VITALS: Blood pressure 110/72, weight 236 lb (107 kg), last menstrual period 08/24/2020, not currently . ? GENERAL: The patient is well nourished, well hydrated in no acute distress. , The patient is oriented to time, place, and person. NECK: Supple. No lynphadenopathy, normal thyroid, no thyromegaly. LUNGS: Clear to auscultation bilaterally. no wheezes, rhonchi or rales HEART: Regular rate and rhythm, Normal heart sounds and No murmurs or gallops abd- soft, nontender, gravid ? IMPRESSION: Estimated Date of Delivery: 05/31/21 ? ? PLAN: The risks/benefits/alternatives and personal involved for the planned c- section were reviewed with the patient. Her questions were answered to her satisfaction and she desires to proceed. Consent was signed. I reviewed with her postop instructions and expectations. ? ? I have reviewed and updated past medical and surgical history, medications and allergies This H&P was completed in my office on 05/20/21. Assessment & Plan Assessment/Plan (1) 39 weeks gestation of : (2) Supervision of other high risk pregnancies, third trimester: (3) Previous delivery, antepartum: (4) Maternal obesity syndrome in third trimester: (5) BMI 40.0-44.9, adult:
[2021-05-25] VITALS (20 sets, daily range): BP systolic 89–119; BP diastolic 43–78; PULSE 68–98; RESP 16; TEMP 36.1–37.2; O2SAT 96–100; BMI 44.4
[2021-05-25] MEDS: Lactated Ringers 1,000 ML 999 ML IV (05:35)
[2021-05-25] MEDS: Acetaminophen 500 MG Tablet 1000 MG PO ×3 (06:03→18:03)
[2021-05-25 06:09] LABS: Absolute Lymphocyte Count 1.76 X10^3/uL (0.83-4.51); Absolute Neutrophil Count 5.9 X10^3/uL (2.0-7.7); Basophil# 0.03 X10^3/uL; Basophil% 0.3 % (0-1); Eosinophil# 0.36 X10^3/uL; Eosinophils% 4.1 % (0-5); Hematocrit 30.6 % (37-47); Hemoglobin 9.8 g/dL (12.0-15.0); Lymphocyte # 1.76 X10^3/ul (0.83-4.51); Mean Corpuscular Hgb 26.1 pg (27.0-32.0); Mean Corpuscular Volume 81.4 fL (81-99); Mean Platelet Vol. 10.8 fl (6.2-12.0); NRBC Flagged by Analyzer 0 % (0-5); Neutrophil # 5.91 X10^3/uL (2.7-7.7); Neutrophil % 67.1 % (47-70); Platelet Count 227 K/mm3 (150-450); RBC Distribution Width CV 14.9 % (11.6-14.6); RBC Distribution Width SD 44.3 fl (35.1-43.9); Red Blood Count 3.76 M/mm3 (4.2-5.4); White Blood Count 8.8 K/mm3 (4.4-11.0)
[2021-05-25] MEDS: Lactated Ringers 1,000 ML 150 ML IV (06:30)
[2021-05-25] MEDS: Sodium Citrate/Citric Acid 30 ML UDC PO (07:17)
--- NOTE | 2021-05-25 08:28 | OP.PCM_ITS ---
Assessment & Plan (1) delivery delivered: (2) Outcome of delivery, single liveborn: Maternal Data Information Final MINH: 05/31/21 Gestational age: 39 174 Details Operative Information Date of Procedure: 05/25/21 Pre-Operative Diagnosis: previous c/s Post-Operative Diagnosis: same Classification: Scheduled Procedure Type: low transverse lap hand tool #1: Bhupinder Quarles Type of Anesthesia: Spinal Anesthesiologist: Dani Medina Special Medications: duramorph Antibiotic Given: Ancef 2 grams IV x1 Estimated Blood Loss: 700 Fluids Replaced: 1000 Procedure Start Time: 07:51 Procedure Stop Time: 08:31 Time of Delivery: 07:55 Findings Description of Procedure: The patient was taken to the operating room. She was prepped and draped in the dorsal supine position with a leftward tilt. A Pfannenstiel skin incision was made approximately 2 cm above the symphysis pubis and carried through to underlying layer fascia with the scalpel. The fascia was incised incised in the midline and extended laterally with the Huffman scissors. The fascia was dissected off the rectus muscles with blunt and sharp dissection. The rectus muscles were in the midline and the peritoneum was entered bluntly. The peritoneal incision was stretched and the bladder blade was placed. The uterine incision was made in a low transverse fashion with the scalpel and extended superiorly and inferiorly with blunt dissection. The Manuelito O retractor was placed in the abdomen in the usual sterile fashion. Care was taken to ensure that no abdominal contents were trapped underneath it. The amniotic membranes were ruptured bluntly and clear amniotic fluid returned. The 's head was brought to the incision in the flexed position and delivered without difficulty. The remainder of the infant was delivered with gentle traction and fundal pressure in the standard fashion. The mouth and nares were bulb suctioned. The cord was clamped and cut as the was stimulated. C ord clamping was delayed. The infant was handed off to the waiting nursing staff. The placenta was delivered with fundal massage and gentle traction in the standard fashion. The uterus was exteriorized and cleared of all clots and debris. The cervix was dilated with a ring forcep. The uterine incision was closed with #1 Vicryl in a running locked fashion. A second layer of the same suture was used in an imbricating fashion. Several [id number] sutures were needed in a sinus on the left side of the uterus to obtain hemostasis. The incision was examined and was found to be hemostatic. Placed over the incision. The uterus was placed back into the peritoneal cavity and hemostasis was again confirmed. The rectus muscles were examined and any bleeding was Bovie cauterized. The parietal peritoneum and rectus muscles were closed en bloc with an 0 Vicryl running suture. It over this layer as well. The surgical teams outer gloves were then changed. The rectus fascia was examined and any bleeding was Bovie cauterized and the rectus fascia was closed with #1 PDS looped suture in a running standard fashion. The subcutaneous tissue was examining and any bleeding was Bovie cauterized. Some Dai was placed in the subcutaneous layer. The subcutaneous tissue was reapproximated with 3-0 Vicryl suture. The skin was closed in a subcuticular fashion by the SENIOR PORTFOLIO ANALYST with me present in the labor and delivery suite. I performed the remainder of the procedure with assistance. All sponge, lap, and needle counts were correct. The patient was taken to her room for recovery in a stable condition. Presentation: Positive for Vertex Amniotic Membrane Rupture Type: Artificial Amniotic Fluid Description: Clear Placental Delivery Description: Expressed Placenta Disposition: [facility] Specimen(s) Sent to Pathology: none Cord Vessel Description: 3 Vessels Cord Entanglement: Around neck x 1, loose Nuchal Cord Compression: Without compression Cord Gases: ABG and VBG Infant A Gender: Female (Sanjay 7lb 12 oz) (1 minute): 9 (5 minute): 9 Delayed Cord Clamping: Yes Complications Complications: none
[2021-05-25] MEDS: Oxytocin 30 units/NS 500 ml 30 UNITS/500 ML IV.SOLN 167 UNITS IV (08:50)
[2021-05-25] MEDS: Ketorolac 30 MG/ML Syringe IV ×3 (09:24→21:23)
[2021-05-25] MEDS: Lactated Ringers 1,000 ML 100 ML IV (11:54)
[2021-05-25] MEDS: Senna/Docusate Sodium 1 Tablet PO (11:54)
[2021-05-25] MEDS: Enoxaparin 40 MG/0.4 ML Syringe SC (21:23)
[2021-05-25] MEDS: 0.9% Saline Lock 10 ML Syringe IV (21:23)
[2021-05-26 01:30] VITALS: BP 99/50; PULSE 97; RESP 16; TEMP 36.2; O2SAT 97
[2021-05-26] MEDS: Acetaminophen 500 MG Tablet 1000 MG PO ×3 (01:30→13:18)
[2021-05-26] MEDS: Ketorolac 30 MG/ML Syringe IV (03:15)
[2021-05-26] MEDS: 0.9% Saline Lock 10 ML Syringe IV (03:15)
[2021-05-26 03:30] VITALS: BP 112/58; PULSE 96; RESP 16; TEMP 36.9; O2SAT 99
[2021-05-26 04:35] VITALS: PULSE 71; RESP 16; O2SAT 95
[2021-05-26 05:22] LABS: Hematocrit 25.8 % (37-47); Hemoglobin 8.4 g/dL (12.0-15.0); Mean Corp Hgb Conc 32.6 g/dL (32-36); Mean Corpuscular Hgb 26.7 pg (27.0-32.0); Mean Corpuscular Volume 81.9 fL (81-99); Platelet Count 212 K/mm3 (150-450); RBC Distribution Width CV 15.2 % (11.6-14.6); RBC Distribution Width SD 45.1 fl (35.1-43.9); Red Blood Count 3.15 M/mm3 (4.2-5.4); White Blood Count 12.4 K/mm3 (4.4-11.0)
[2021-05-26 08:13] VITALS: BP 106/68; PULSE 91; RESP 16; TEMP 36.4; O2SAT 96
--- NOTE | 2021-05-26 08:44 | PCM.PN.OB ---
Subjective Subjective Doing well per patient and nursing staff. Ambulating and taking PO without difficulty. Voiding and passing flatus. Pain controlled. , services for assistance. Denies headache, visual changes, chest pain, shortness of breath, leg pain or increased bleeding. Lochia normal. Objective Data Objective Data Vital Signs: Vital Signs Temp Pulse Resp BP Pulse Ox 97.5 F L 91 16 106/68 96 05/26/21 08:13 05/26/21 08:13 05/26/21 08:13 05/26/21 08:13 05/26/21 08:13 Oxygen Delivery Method Room Air Weight: 235 lb Body Mass Index (BMI) 44.4 Intake & Output: Intake and Output for Last 24 Hours 05/24/21 05/25/21 05/26/21 23:59 23:59 23:59 Intake Total 2065.75 / 2065.75 Output Total 1350 / 1350 400 / 400 Balance 715.75 / 715.75 -400 / -400 Lab / Micro Data Result Diagrams: 05/26/21 05:10 Labs: Laboratory Results - last 24 hr 05/26/21 05:10: WBC 12.4 H, RBC 3.15 L, Hgb 8.4 L, Hct 25.8 L, MCV 81.9, MCH 26.7 L, MCHC 32.6, RDW Std Deviation 45.1 H, RDW Coeff of Radha 15.2 H, Plt Count 212, MPV 11.0 ROS Constitutional Constitutional: Reports systems reviewed and no addt'l complaints, except as documented; Denies headache(s) Eyes Eyes: Denies acute decrease in peripheral vision, blurry vision or change in vision ENT HEENT: Reports systems reviewed and no addt'l complaints, except as documented Cardiovascular Cardiovascular: Denies chest pain or dizziness Respiratory/Chest Respiratory/Chest: Denies cough, dyspnea, dyspnea on exertion, shortness of breath at rest or shortness of breath with exertion Gastrointestinal Gastrointestinal: Denies abdominal pain, diarrhea, nausea or vomiting Genitourinary Genitourinary: Denies abdominal discomfort Musculoskeletal Musculoskeletal: Denies limited range of motion Integumentary Integumentary: Reports systems reviewed and no addt'l complaints, except as documented Neurologic Neurologic: Reports systems reviewed and no addt'l complaints, except as documented Psychiatric Psychiatric: Reports systems reviewed and no addt'l complaints, except as documented Endocrine Endocrinology: Reports systems reviewed and no addt'l complaints, except as documented Hematologic/Lymphatic Hematologic/Lymphatic: Reports systems reviewed and no addt'l complaints, except as documented Allergic/Immunologic Allergic/Immunologic: Reports systems reviewed and no addt'l complaints, except as documented Physical Exam Const alert and oriented x3 General Appearance: cooperative Orientation / Consciousness: awake, oriented to person, oriented to place and oriented to time Exam Limitations: no limitations HEENT normocephalic Head and Scalp: normal to inspection, normocephalic and atraumatic Face and Sinus: normal facial exam Eyes General Eye: normal appearance of both eyes Neck full ROM Chest Chest: symmetrical chest wall rise Resp normal respiratory effort and normal air movement Auscultation: clear to auscultation bilaterally Cardio regular rate, regular rhythm, S1 normal heart sound, S2 normal heart sound, no murmurs, no rub, no gallops and no clicks GI normal to inspection, nondistended, normoactive bowel sounds and non-tender GI Narrative: fundus firm 2 below U. dressing dry and intact appearance of the vagina normal Bladder / Kidney Exam: no CVA tenderness Back/Spine normal ROM Extremity normal to inspection and full ROM Skin no rashes or lesions noted Neuro oriented x3, CN's II-XII intact bilaterally and moves all extremities Sensorium / Orientation: awake, alert and oriented to person Motor Exam: clonus absent Deep Tendon Reflexes: Rt Patellar (L4): 2+ and Lt Patellar (L4): 2+ Assessment & Plan (1) delivery delivered: (2) Acute blood loss anemia: PLAN: 1) Routine Postoperative care 2) services as needed 3) VSS 4) Hgb 8.4, will start iron supplement 5) Pain management 6) Requesting D/C home. Stable and ok for discharge 7) Follow up in 1 week for incision check and 6 week PP visit
--- NOTE | 2021-05-26 08:47 | DS.PCM_ITS ---
Providers Date of Admission: 05/25/21 Primary Care Physician: Dr. Rolan Art MD Reason For Visit: CSECTION/CSECTION DELIVERY Diagnosis Discharge Diagnosis (1) delivery delivered: Status: Acute Code(s): O82 - Encounter for delivery without indication Medications at Discharge Home Medications ferrous sulfate 325 mg PO DAILY 09/13/19 naproxen 500 mg PO Q8H #0 tab 05/26/21 oxycodone 5 mg PO Q6H PRN PRN 7 Days #10 tab 05/26/21 Weight / BMI Weight Weight: 235 lb Body Mass Index (BMI) 44.4 ABG / Lab / Microbiology Data Result Diagrams: 05/26/21 05:10 Laboratory: Laboratory Results - last 24 hr 05/26/21 05:10: WBC 12.4 H, RBC 3.15 L, Hgb 8.4 L, Hct 25.8 L, MCV 81.9, MCH 26.7 L, MCHC 32.6, RDW Std Deviation 45.1 H, RDW Coeff of Radha 15.2 H, Plt Count 212, MPV 11.0 Meaningful Use Info Meaningful Use Diagnoses (Choose all that apply): None applicable Discharge Plan Admission Admit Date/Time: 05/25/21 05:05 Primary Reason for Your Visit: Section Attending Provider: Jo-Ann Zepeda Primary Care Provider: Rolan Art Discharge Orders/Prescriptions Prescriptions: New naproxen 500 mg Tablet 500 mg PO Q8H Qty: 0 RF: 0 oxycodone 5 mg Tablet 5 mg PO Q6H PRN PRN (Reason: Pain Score 4-10) 7 Days Qty: 10 RF: 0 Continued ferrous sulfate 325 MG tablet 325 mg PO DAILY RF: 0 Discontinued famotidine 40 MG tablet 40 mg PO PRN PRN (Reason: Heartburn) RF: 0 magnesium 250 MG tablet 500 mg PO DAILY PRN (Reason: Supplement Medical Assistant Per Diem) RF: 0 Referrals / Follow Up: Rolan Art MD [Primary Care Provider] - Jo-Ann Zepeda MD [STAFF PHYSICIAN] - (1 week and 6 week ) Disposition Disposition (needs filled in before D/C Order can be placed): Home, Self Care
[2021-05-26] MEDS: Enoxaparin 40 MG/0.4 ML Syringe SC (10:43)
[2021-05-26] MEDS: Senna/Docusate Sodium 1 Tablet PO (10:43)
[2021-05-26] MEDS: Naproxen 500 MG Tablet PO (10:43)
[2021-05-26 12:25] VITALS: BP 111/64; PULSE 99; RESP 16; TEMP 36.3; O2SAT 100
== END 2021-05-26 13:40 | disposition home or self-care (01) | DRG 787 ==
PROVIDERS: Admitting Provider Obstetrics & Gynecology; PCP Family Medicine; Visit Provider Obstetrics & Gynecology
PROC: 10D00Z1 Extraction of Products of Conception, Low, Open Approach (ICD-10-PCS; CPT 59514; principal; 2021-05-25 07:15)
DX: O65.5 Obstructed labor due to abnormality of maternal pelvic organs (principal); D62 Acute posthemorrhagic anemia; O34.219 Maternal care for unspecified type scar from previous cesarean delivery; O69.1XX0 Labor and delivery complicated by cord around neck, with compression, not applicable or unspecified; O99.214 Obesity complicating childbirth; E66.9 Obesity, unspecified; Z37.0 Single live birth; Z3A.39 39 weeks gestation of pregnancy; Z80.1 Family history of malignant neoplasm of trachea, bronchus and lung; Z80.3 Family history of malignant neoplasm of breast
CPT/HCPCS: 85025; 85027; 86850; 86900; 86901; 99218; J7120; A4216; G0378; J2405